=== PATIENT | female | born 1960 | race Caucasian/White ===

== ENCOUNTER 2017-10-31 07:05 | Day surgery (SDC) | payer OTHER ==
[2017-10-31] MEDS ORDERED: MIDAZOLAM 1 MG/ML 2 ML INJ ×2 (09:44)
[2017-10-31] MEDS ORDERED: FENTAnyl 50 MCG/ML VIAL (09:44)
== END 2017-10-31 11:17 | disposition home or self-care (01) ==
LOC: GIL 07:05
DX: K92.1 Melena (principal); K44.9 Diaphragmatic hernia without obstruction or gangrene; K21.9 Gastro-esophageal reflux disease without esophagitis; K29.60 Other gastritis without bleeding; K57.90 Diverticulosis of intestine, part unspecified, without perforation or abscess without bleeding; K64.8 Other hemorrhoids
CPT/HCPCS: 43239; 87081